=== PATIENT | female | born 1960 | race Caucasian/White ===

== ENCOUNTER → 2017-08-23 22:58 | Outpatient (CLI) | payer BC, SELFPAY ==
[2017-08-27 11:32] LABS: HPV APTIMA, High Risk Negative (Negative)
== END ==
PROVIDERS: Visit Provider Nurse Practitioner Women's Health
DX: Z12.4 Encounter for screening for malignant neoplasm of cervix (principal)
CPT/HCPCS: 88175; G0145

== ENCOUNTER → 2017-08-31 11:01 | Outpatient (CLI) | payer BC, SELFPAY ==
--- NOTE | 2017-08-31 11:03 | US_ITS ---
STUDY: THYROID ULTRASOUND REASON FOR EXAM: Female, 57 years old. Nodule on recent outside MRI films. TECHNIQUE: Ultrasound evaluation of the thyroid was performed with real-time and static ruth-scale imaging. COMPARISON: None. FINDINGS: RIGHT LOBE: The right lobe of the thyroid gland measures 5.2 x 1.2 x 1.9 cm. There is a homogeneous echotexture. There are no demonstrated solid, cystic or complex lesions. LEFT LOBE: The left lobe of the thyroid gland measures 4.2 x 1.8 x 1.5 cm. There is a homogeneous echotexture. There are 3 solid nodules. One is at the upper pole is 8.4 x 8.4 x 8 mm. A second, with slightly less distinct and vascular margins at the mid pole is 1.5 x 1.2 x 1.6 cm. The third is at the lower pole, measuring 5 mm diameter and less clearly defined. ISTHMUS: The isthmus measures 2 mm. The regional lymph nodes are normal. US/Thyroid IMPRESSION: 3 solid left thyroid nodules, as described. Electronically Signed: Beto Ruiz MD at 12:10 EDT , Service support ,
== END ==
PROVIDERS: Family Provider Family Medicine; PCP Family Medicine; Visit Provider Surgery
DX: E04.1 Nontoxic single thyroid nodule (principal)
CPT/HCPCS: 76536

== ENCOUNTER → 2017-09-02 13:03 | Outpatient (CLI) | payer BC, SELFPAY ==
--- NOTE | 2017-09-02 08:00 | ASPS_PTH ---
PATIENT: CHARLES PERDUE LOC: [facility] U#:[id number] AGE/SX: 64/F ROOM: RE09/02/[address]: Dr. Arsenio Marin MD : 1960 BED: DIS: SPEC #: [id number] RECD: 09/02/17 13:01 STATUS: DHIRAJ GENE #: [id number] WENDY: 09/02/17 08:[address]: Arsenio Marin DEPT: CYTOLOGY RECD BY: Oren Harley ENTERED: 09/02/17 13:31 SP TYPE: ASPIRATION OTHR DR: Dr. Samuel Messina MD Tissues: Thyroid gland, NOS Procedures: Pap Stain (control) Special Stain Group II Cytology Other HEADER OPERATION: Left thyroid FNA PRE-OP DIAGNOSIS: Thyroid nodules TISSUE SUBMITTED: Left thyroid slides (10) DIAGNOSIS CYTOLOGY Left thyroid nodule, FNA (smears): Consistent with benign follicular nodule. See cytology study and comment. SJ:connie 09/03/17 COMMENT Correlation with clinical, radiologic findings and appropriate follow up are necessary. CYTOLOGY STUDY Slides are reviewed. The specimen is adequate for evaluation. The specimen consists of benign follicular cells and diluted colloid. CYTOLOGY GROSS Received are ten smears labeled with the patient's name and designated per the requisition as left thyroid. Submitted for staining. / 09/02/17 TC:5 CPT: 71559
== END ==
PROVIDERS: Family Provider Family Medicine; PCP Family Medicine; Visit Provider Surgery
DX: E04.1 Nontoxic single thyroid nodule (principal)
CPT/HCPCS: 88161; 88313

== ENCOUNTER → 2017-09-09 13:58 | Outpatient (CLI) | payer BC, SELFPAY ==
--- NOTE | 2017-09-09 14:00 | BI_ITS ---
MAMMOGRAPHY - BILATERAL SCREENING REASON FOR EXAM: Female, 57 years old. Routine annual screening examination. PERTINENT HISTORY: Mother with breast cancer. Aunt with breast cancer. Prior right breast biopsy. TECHNIQUE: Digital bilateral breast raphael (3D mammographic acquisition) in the CC and MLO projections. 2-D mediolateral oblique (MLO) and craniocaudad (CC) views of both breasts were obtained. CAD: Full Field Digital Mammography with Computer Added Detection was performed. COMPARISON: Comparison is made with prior chest examination dated September 08, 2016. FINDINGS: Breast Composition: There are scattered areas of fibroglandular density. There are no dominant masses or suspicious calcifications. A tissue clip marker is once again seen in the upper deep portion of the right breast. No other significant abnormalities are identified. There has been no significant change since the prior study. BI/SCREENING MAMM (CAD), BILAT IMPRESSION: Stable bilateral screening mammogram. Yearly follow-up mammogram recommended. (A) ASSESSMENT CATEGORY: BIRADS Category 2: Benign. A letter regarding these results will be sent to the patient by the facility within 30 days. Approximately 10% of breast cancers are not detected by mammography. A normal mammogram should not delay biopsy of a clinically suspicious abnormality. [id number] Electronically Signed: Mesfin Christensen MD at 15:15 EDT Tel [phone], Service support ,
== END ==
PROVIDERS: Family Provider Family Medicine; PCP Family Medicine; Visit Provider Nurse Practitioner Women's Health
DX: Z12.31 Encounter for screening mammogram for malignant neoplasm of breast (principal)
CPT/HCPCS: 77063; 77067

== ENCOUNTER → 2018-09-13 09:33 | Outpatient (CLI) | payer BC, SELFPAY ==
[2018-08-30 13:38] VITALS: BMI 26.1
--- NOTE | 2018-09-13 09:35 | US_ITS ---
STUDY: THYROID ULTRASOUND REASON FOR EXAM: Female, 58 years old. Thyroid nodules TECHNIQUE: Ultrasound evaluation of the thyroid was performed with real-time and static ruth-scale imaging. COMPARISON: 08/31/2017 FINDINGS: RIGHT LOBE: The right lobe of the thyroid gland measures 5.1 x 1.7 x 1.3 cm. There is a homogeneous echotexture. There are no demonstrated solid, cystic or complex lesions. LEFT LOBE: The left lobe of the thyroid gland measures 4.4 x 1.6 x 1.6 cm. There is a homogeneous echotexture. Again noted are 3 solid nodules in the left lobe of the thyroid. The largest measures 1.6 x 1.3 cm. These are not significantly changed when compared with the prior exam. ISTHMUS: The isthmus measures 2 mm. The regional lymph nodes are normal. US/Thyroid IMPRESSION: No significant change in the previously seen left thyroid nodules. Electronically Signed: Wilton Stephen, at 17:25 EDT Tel , Service support ,
--- NOTE | 2018-09-13 10:15 | BI_ITS ---
MAMMOGRAPHY - BILATERAL SCREENING REASON FOR EXAM: Female, 58 years old. Routine annual screening examination. PERTINENT HISTORY: Mother with breast cancer. Aunts with breast cancer. TECHNIQUE: Digital bilateral breast roseann (3D mammographic acquisition) in the CC and MLO projections. 2-D mediolateral oblique (MLO) and craniocaudad (CC) views of both breasts were obtained. CAD: Full Field Digital Mammography with Computer Added Detection was performed. COMPARISON: Comparison is made with prior study dated September 09, 2017 and August 18, 2010. FINDINGS: Breast Composition: There are scattered areas of fibroglandular density. There are no dominant masses or suspicious calcifications. Once again, a tissue clip marker is seen in the upper deep portion of the right breast. No other significant abnormalities are identified. There has been no significant change since the prior study. BI/SCREEN MAMM (CAD) W/ROSEANN BILAT IMPRESSION: Stable bilateral screening mammogram. Yearly follow-up mammogram recommended. (A) ASSESSMENT CATEGORY: BIRADS Category 2: Benign. A letter regarding these results will be sent to the patient by the facility within 30 days. Approximately 10% of breast cancers are not detected by mammography. A normal mammogram should not delay biopsy of a clinically suspicious abnormality. [id number] Electronically Signed: Mesfin Christensen, at 12:39 EDT , Service support ,
== END ==
PROVIDERS: Family Provider Family Medicine; PCP Family Medicine; Referring Provider Nurse Practitioner Women's Health; Visit Provider Nurse Practitioner Women's Health
DX: Z12.31 Encounter for screening mammogram for malignant neoplasm of breast (principal); Z80.3 Family history of malignant neoplasm of breast; E04.1 Nontoxic single thyroid nodule
CPT/HCPCS: 76536; 77063; 77067

== ENCOUNTER → 2018-09-16 10:00 | Outpatient (CLI) | payer BC, SELFPAY ==
[2018-09-16 09:39] VITALS: BMI 26.1
== END ==
PROVIDERS: Family Provider Family Medicine; PCP Family Medicine; Referring Provider Surgery; Visit Provider Surgery
DX: L65.9 Nonscarring hair loss, unspecified (principal)
CPT/HCPCS: 36415; 84439; 84443

== ENCOUNTER 2019-09-29 12:43 | Emergency (ER) | payer BC, SELFPAY ==
[2018-09-16 09:39] VITALS: BMI 26.1
[2019-09-29 12:43] VITALS: BP 149/86; PULSE 83; RESP 16; TEMP 36.1; O2SAT 96; BMI 25.7
--- NOTE | 2019-09-29 12:57 | RAD_ITS ---
STUDY: X-RAY - LEFT ANKLE REASON FOR EXAM: Female, 59 years old. PAIN, SWELLING AND BRUISING S/P INJURY WHILE HIKING TECHNIQUE: 3 view(s) of the ankle. COMPARISON: None. FINDINGS: Nondisplaced transverse fracture at the base of the fifth metatarsal. Normal visualized distal tibia and fibula. Normal medial and lateral malleoli. Normal tibiotalar articulation and ankle mortise. Normal visualized talus and calcaneus. The visualized subtalar, talonavicular, calcaneocuboid and tarsal articulations are normal. Soft tissue swelling RAD/Ankle min 3 Views IMPRESSION: Nondisplaced transverse fracture at the base of the fifth metatarsal with overlying soft tissue swelling. Electronically Signed: Mesfin Christensen, at 13:24 EDT , Service support ,
--- NOTE | 2019-09-29 13:29 | ED.DCSUM_ITS ---
History of Present Illness Informant: Patient Occurred: Yesterday Mechanism/Context: Fall Onset: Yesterday Context: Sudden Onset Timing: Continuous Quality of Pain: Sharp, Throbbing Location: left ankle Current Severity: Mild Maximum Severity: Moderate Worsened by: walking Relieved by: rest Associated Symptoms: Negative for: Parasthesia, Weakness, Loss of Funtion Narrative: 59-year-old female presents to the emergency department with a left ankle injury. She fell a couple of days ago injuring her left ankle. She has had pain swelling and bruising. No numbness or tingling. No weakness. She is still able to ambulate. She has a remote history of a spraining this ankle. No surgeries. No other injuries are noted. She is not on anticoagulation. Tetanus Immunization: Unknown Prior similar symptoms: No Recent Illness/Hospitalization: No <Houston Walker - Last Filed: 09/29/19 13:33> <Angel Zaidi - Last Filed: 09/29/19 13:52> Chief Complaint: Lower Extremity Injury Past Medical History Prior records reviewed: Yes Past Medical History: None Surgical History: - - removal of spinal cord tumor Lives: With Family Smoking Status: Never smoker Alcohol: None Drugs: None <Houston Walker - Last Filed: 09/29/19 13:33> <Angel Zaidi - Last Filed: 09/29/19 13:52> - Allergies and Home Meds Allergies/Adverse Reactions: Allergies narcotics Adverse Reaction (Mild, Uncoded 09/29/19 12:45) Vomiting Primary Care Physician: Fran Douglas DPM [STAFF PHYSICIAN] - 5-7 Days Review of Systems All systems negative except as indicated General: Denies: Chills, Fever, Malaise Eyes: Denies: Visual changes - bilaterally, Blurred Vision - bilaterally, Diplopia ENT: Denies: Rhinorrhea, Sore throat Cardiovascular: Denies: Chest pain, Palpitations, Heart racing Respiratory: Denies: Dyspnea, Cough, Sputum Gastrointestinal: Denies: Abdominal pain, Nausea, Vomiting, Diarrhea Genitourinary: Denies: Dysuria, Hematuria, Frequency Musculoskeletal: Reports: Swelling, Extremity Pain. Denies: Myalgias, Arthralgias, Neck pain Skin: Denies: Rash, Abscess, Abrasions Neurological: Denies: Headache, Weakness, Parasthesia Hematologic: Denies: Easy bruising, Easy bleeding <Houston Walker - Last Filed: 09/29/19 13:33> Physical Exam Vital Signs/Narrative: Vital Signs Temp Pulse Resp BP Pulse Ox 09/29/19 12:43 97 F L 83 16 149/86 H 96 Inital Vital Signs reviewed: Yes - Extremity Exam Left Ankle: - - Swelling and bruising noted left lateral ankle and foot. Skin is intact. Patient is able to actively plantarflex and dorsiflex. There is no proximal fibular tenderness. DP and PT pulse are normal. She is minimally tender mostly on her lateral malleolus as well as her fifth metatarsal. <Houston Walker - Last Filed: 09/29/19 13:33> Vital Signs/Narrative: Vital Signs Temp Pulse Resp BP Pulse Ox 09/29/19 12:43 97 F L 83 16 149/86 H 96 <Angel Zaidi - Last Filed: 09/29/19 13:52> Diagnostic/Tx/Re-eval Impressions Ankle X-Ray 09/29/19 12:57 IMPRESSION: Nondisplaced transverse fracture at the base of the fifth metatarsal with overlying soft tissue swelling. Electronically Signed: Mesfin Amparo, at 13:24 EDT , Service support , 09/29/19 12:57 XRAY Ankle [Ankle min 3 Views] [RAD] Stat - Medical Decision Making X-ray shows fifth metatarsal fracture. Patient will be placed in a walking boot and given follow-up with podiatry. Patient advised to rest ice and elevate. She uses Aleve for pain and will intermix Tylenol. She was given return precautions and will follow-up as an outpatient. <Houston Walker - Last Filed: 09/29/19 13:33> - Medical Decision Making Patient was seen with me. I did a [id number] examination with the patient. Patient states she fell 3 days ago. Patient states she has had increased bruising over her ankle and foot. Patient states she has been ambulating without difficulty. Patient states the pain is worse with ambulation. Patient denies any paresthesias or weakness. Patient denies any other injuries. Vital signs are stable. Patient is afebrile. Patient is in no acute distress. Musculoskeletal exam reveals tenderness over the base of the fifth metatarsal on the left. There is no tenderness over the malleoli. There is no bony crepitance or step-off. There is edema and ecchymosis over the left foot. Sens ation was intact to light touch in all digits. Capillary refill is less than 2 seconds in all digits. Pedal pulses are equal bilaterally. X-rays of the left ankle were obtained. There is a transverse fracture of the base of the fifth metatarsal. There is minimal displacement. These were interpreted by the radiologist and reviewed by myself. Patient was placed in a walking boot. Patient was instructed to ice and elevate the left foot. Patient was given a referral to podiatry. Patient was instructed to follow-up in 7 to 10 days. Patient understood and was agreeable with the plan. All questions were answered. <Agnel Zaidi - Last Filed: 09/29/19 13:52> ED Disposition <Houston Walker - Last Filed: 09/29/19 13:33> <Angel Zaidi - Last Filed: 09/29/19 13:52> - Plan for ED Patient: Disposition: Home or Assisted Living Diagnosis: Fracture of fifth metatarsal bone of left foot Instructions: ED FOOT FRACTURE Referrals: Fran Douglas DPM [STAFF PHYSICIAN] - 5-7 Days
== END 2019-09-29 13:49 | disposition home or self-care (01) ==
PROVIDERS: Emergency Provider Physician Assistant Medical; PCP Family Medicine
DX: S92.355A Nondisplaced fracture of fifth metatarsal bone, left foot, initial encounter for closed fracture (principal); W19.XXXA Unspecified fall, initial encounter; Y93.9 Activity, unspecified; Y92.89 Other specified places as the place of occurrence of the external cause; Y99.8 Other external cause status; Z88.5 Allergy status to narcotic agent
CPT/HCPCS: 73610; 99283

== ENCOUNTER → 2019-10-24 14:51 | Outpatient (CLI) | payer BC, SELFPAY ==
[2018-09-16 09:39] VITALS: BMI 26.1
[2019-09-29 12:43] VITALS: BMI 25.7
--- NOTE | 2019-10-24 14:51 | BI_ITS ---
MAMMOGRAPHY - BILATERAL SCREENING 3-D TOMOSYNTHESIS REASON FOR EXAM: Female, 59 years old. Routine screening PERTINENT HISTORY: BILAT SCREENING - FAM HX OF MOTHER @ AGE 72 and amp; amp; 2 PATERNAL AUNTS @ AGE 62 - RT BX 7+ YRS AGO. TECHNIQUE: 2-D mammograms and 3-D Tomosynthesis of the breast (s) were performed. CAD was performed. COMPARISON: 09/13/2018 FINDINGS: The breast composition is composed of scattered fibroglandular density. Scattered benign calcifications are seen. No dense spiculated masses or suspicious microcalcifications are identified. No architectural distortion is identified. There is no skin thickening or retraction. Stable tissue clip marker in the central right breast There has been no significant change since the prior study. BI/SCREEN MAMM (CAD) W/ROSEANN BILAT IMPRESSION: No mammographic signs of malignancy. Routine yearly mammograms recommended. ASSESSMENT CATEGORY: BIRADS Category 2: Benign. A letter regarding these results will be sent to the patient by the facility within 30 days. FOLLOW UP RECOMMENDATION: Yearly follow up mammogram recommended. (A) Approximately 10% of breast cancers are not detected by mammography. A normal mammogram should not delay biopsy of a clinically suspicious abnormality. Electronically Signed: Beto Dillon MD at 7:46 EDT , Service support ,
== END ==
PROVIDERS: PCP Family Medicine; Referring Provider Nurse Practitioner Women's Health; Visit Provider Nurse Practitioner Women's Health
DX: Z12.31 Encounter for screening mammogram for malignant neoplasm of breast (principal)
CPT/HCPCS: 77063; 77067

== ENCOUNTER → 2020-07-16 10:57 | Outpatient (CLI) | payer BC, SELFPAY ==
[2019-11-21 15:12] VITALS: BMI 25.7
--- NOTE | 2020-07-16 11:01 | US_ITS ---
STUDY: THYROID ULTRASOUND REASON FOR EXAM: Female, 59 years old. Multiple thyroid nodules TECHNIQUE: Ultrasound evaluation of the thyroid was performed with real-time and static ruth-scale imaging. COMPARISON: Comparison is made with prior study dated 09/13/2018. FINDINGS: RIGHT LOBE: The right lobe of the thyroid gland measures 4.4 cm x 1 cm x 1.4 cm. There is a homogeneous echotexture. There are no demonstrated solid, cystic or complex lesions. LEFT LOBE: The left lobe of the thyroid gland measures 4.4 cm x 1.6 x 2.0 cm. There is a homogeneous echotexture. Once again, 3 solid hypoechoic nodules are seen. The largest measures 1.8 cm x 1.5 cm x 1.7 cm. This is essentially unchanged. This is in the midportion of the left lobe. ISTHMUS: The isthmus measures 2 mm. The regional lymph nodes are normal. US/Thyroid IMPRESSION: Stable solid nodules in the left lobe of the thyroid. Electronically Signed: Mesfin Christensen MD at 13:29 EDT , Service support ,
== END ==
PROVIDERS: PCP Family Medicine; Referring Provider Surgery; Visit Provider Surgery
DX: E04.2 Nontoxic multinodular goiter (principal)
CPT/HCPCS: 76536

== ENCOUNTER 2021-05-06 09:58 | Outpatient (CLI) | payer BC, SELFPAY ==
--- NOTE | 2021-05-06 10:00 | BI_ITS ---
MAMMOGRAPHY - BILATERAL SCREENING REASON FOR EXAM: Female, 60 years old. Routine annual screening examination. PERTINENT HISTORY: Mother with breast cancer. Aunts with breast cancer. TECHNIQUE: Digital bilateral breast roseann (3D mammographic acquisition) in the CC and MLO projections. 2-D mediolateral oblique (MLO) and craniocaudad (CC) views of both breasts were obtained. CAD: Full Field Digital Mammography with Computer Added Detection was performed. COMPARISON: Comparison is made with prior study dated 10/24/2019 and 09/13/2018. FINDINGS: Breast Composition: There are scattered areas of fibroglandular density. There are no dominant masses or suspicious calcifications. A tissue clip marker is seen in the deep upper central portion of the right breast. No other significant abnormalities are identified. There has been no significant change since the prior study. BI/SCRN MAMM (CAD)W/ROSEANN BILAT IMPRESSION: Stable bilateral screening mammogram. Yearly follow-up mammogram recommended. (A) ASSESSMENT CATEGORY: BIRADS Category 2: Benign. A letter regarding these results will be sent to the patient by the facility within 30 days. Approximately 10% of breast cancers are not detected by mammography. A normal mammogram should not delay biopsy of a clinically suspicious abnormality. [id number] Electronically Signed: Mesfin Christensen MD at 10:44 EST , Service support ,
== END 2021-05-06 23:59 | disposition short-term general hospital (02) ==
LOC: OPBI 09:59
PROVIDERS: PCP Family Medicine; Referring Provider Nurse Practitioner Women's Health; Visit Provider Nurse Practitioner Women's Health
DX: Z12.31 Encounter for screening mammogram for malignant neoplasm of breast (principal); Z80.3 Family history of malignant neoplasm of breast
CPT/HCPCS: 77063; 77067

== ENCOUNTER → 2022-05-12 | Outpatient (CLI) | payer BC, SELFPAY ==
--- NOTE | 2022-05-12 09:59 | BI_ITS ---
MAMMOGRAPHY - BILATERAL SCREENING REASON FOR EXAM: Female, 61 years old. Routine annual screening examination. PERTINENT HISTORY: Mother with breast cancer. Aunts with breast cancer. Prior right breast biopsy. TECHNIQUE: Digital bilateral breast roseann (3D mammographic acquisition) in the CC and MLO projections. 2-D mediolateral oblique (MLO) and craniocaudad (CC) views of both breasts were obtained. CAD: Full Field Digital Mammography with Computer Added Detection was performed. COMPARISON: Comparison is made with prior study dated 10/04/2021 and 10/24/2019. FINDINGS: Breast Composition: There are scattered areas of fibroglandular density. There are no dominant masses or suspicious calcifications. A tissue clip marker is once again seen in the deep slightly upper central portion of the right breast. No other significant abnormalities are identified. There has been no significant change since the prior study. BI/SCRN MAMM (CAD)W/ROSEANN BILAT IMPRESSION: Stable bilateral screening mammogram. Yearly follow-up mammogram recommended. (A) ASSESSMENT CATEGORY: BIRADS Category 2: Benign. A letter regarding these results will be sent to the patient by the facility within 30 days. Approximately 10% of breast cancers are not detected by mammography. A normal mammogram should not delay biopsy of a clinically suspicious abnormality. [id number] Electronically Signed: Mesfin Christensen MD at 12:48 EST ,
[2022-05-18 22:15] LABS: HPV APTIMA, High Risk Negative (Negative)
== END | disposition home or self-care (01) ==
PROVIDERS: PCP Family Medicine; Referring Provider Nurse Practitioner Women's Health; Visit Provider Nurse Practitioner Women's Health
DX: Z12.31 Encounter for screening mammogram for malignant neoplasm of breast (principal); Z80.3 Family history of malignant neoplasm of breast; Z12.4 Encounter for screening for malignant neoplasm of cervix
CPT/HCPCS: 77063; 77067; 87624; 88175; G0145

== ENCOUNTER 2022-08-18 06:16 | Day surgery (SDC) | payer BC, SELFPAY ==
[2022-08-18] VITALS (7 sets, daily range): BP systolic 100–137; BP diastolic 60–75; PULSE 75–80; RESP 16–18; TEMP 36.1–36.4; O2SAT 96–99; BMI 25.3
[2022-08-18] MEDS: Lactated Ringers 1,000 ML 15 ML IV (06:52)
--- NOTE | 2022-08-18 07:02 | PCM.HP.STD ---
[facility] - [facility] General Date of Service: 08/18/22 Chief Complaint: Personal history of colon polyps [facility] Narrative CHARLES PERDUE, is a 61 F who presents with a personal history of colon polyps. Her most recent colonoscopy was July 2016. Polyp was removed at that time but it was benign. It was noted that she had a difficult colonoscopy due to tortuosity. She has had no abdominal pain no bright red blood per rectum or melena. [facility] Medical History (Updated 08/18/22 @ 07:[address] Arsenio Marin MD) Easy bruising Excessive bleeding History of colon polyps History of melanoma Low iron Multiple thyroid nodules Non-smoker Post-menopausal Thyroid nodule Type 2 diabetes mellitus Uterine fibroid Wears contact lenses Home Medications solifenacin 10 mg tablet (Vesicare) 10 mg PO QODAY 04/28/17 [History Last Taken Unknown] lysine 500 mg tablet 500 mg PO PRN PRN Cold Sores 05/25/17 [History Last Taken Unknown] lactobacillus combination no.8 3 billion cell capsule (Adult Probiotic) 3,000 mmu cells PO QDAY 08/23/17 [History Last Taken Unknown] multivitamin 1 ea PO DAILY 09/29/19 [History Last Taken Unknown] cranberry fruit concentrate 250 mg chewable tablet (Azo Cranberry) 250 mg PO TID 11/21/19 [History Last Taken Unknown] thyroid support 2 cap PO DAILY 05/06/21 [History Last Taken Unknown] Allergy/AdvReac Type Severity Reaction Status Date / Time Opioids - Morphine Analogues AdvReac Mild Vomiting Verified 08/18/22 06:51 [narcotics] Family History Mother Breast cancer Father Melanoma Surgical History (Updated 08/12/22 @ 12:55 by Ericka Josue) History of colonoscopy Melanoma S/P thyroid biopsy Spinal cord tumor Social History Smoking Status: Never smoker alcohol intake: never substance use type: does not use caffeine: Yes what type of physical activity do you participate in: yoga frequency: daily seatbelt use: always do you feel safe at home: Yes additional social history: [employer] Constitutional Constitutional: Reports systems reviewed and no addt'l complaints, except as documented Cardiovascular Cardiovascular: Denies chest pain Respiratory/Chest Respiratory/Chest: Denies shortness of breath at rest Gastrointestinal Gastrointestinal: Denies abdominal pain, change in bowel habits, hematochezia or melena Vital Signs Vital Signs Vital Signs: 08/18/22 06:53 08/18/22 06:53 Temperature 97.5 F L Temperature Source Temporal Pulse Rate 78 Respiratory Rate 18 Respiratory Pattern Normal Blood Pressure 137/75 H Blood Pressure Mean 95 Blood Pressure Source Monitor Blood Pressure Position Semi-Fowlers Blood Pressure Location Right Arm Pulse Ox 96 Oxygen Delivery Method Room Air Weight Weight: 143 lb Body Mass Index (BMI) 25.3 Physical Exam Const alert, oriented x3 and no apparent distress General Appearance: cooperative and comfortable Eyes General Eye: normal appearance of both eyes Neck General: normal visual inspection Chest inspection of chest normal Resp Effort and Inspection: able to speak in complete sentences and symmetric chest movement Auscultation: clear to auscultation bilaterally Cardio regular rate and regular rhythm GI soft to palpation, non-tender and non-distended Extremity no calf tenderness Neuro oriented x3 Psych thought process normal Assessment & Plan Assessment/Plan (1) History of colon polyps: PLAN: 61-year-old female with a personal history of colon polyps. Plan to proceed with a colonoscopy with possible biopsy or polypectomy as indicated. She is aware of the technique, benefit, risk, alternatives. We will proceed as noted. Arsenio Marin M.D., F.A.C.S.
--- NOTE | 2022-08-18 08:18 | OP.CCLET_ITS ---
08/18/2022 Samuel Messina Md Re : Colonoscopy procedure for Janae Albarran Dear Siddharth This procedure was performed on Thursday, August 18, 2022. My impressions and recommendations are as follows: Impressions : - Hemorrhoids found on perianal exam. - Tortuous colon. - The examination was otherwise normal. - No specimens collected. Recommendations : - Discharge patient to home. - Resume previous diet. - Continue present medications. - Repeat colonoscopy in 5 years for surveillance. My findings are described in the full procedure note, which is enclosed. If I can be of further assistance, please feel free to contact me at Doctor phone number(s): Work: . Sincerely, Arsenio Marin MD 08/18/2022 8:18:15 AM This report has been signed electronically.
--- NOTE | 2022-08-18 08:18 | OP.COLON_ITS ---
Patient Name: Janae Albarran Procedure Date: 08/18/2022 7:43 AM Date of : 1960 Age: 61 Procedure: Colonoscopy Indications: High risk colon cancer surveillance: Personal history of colonic polyps Providers: Arsenio Marin MD Referring MD: Arsenio Marin MD Medicines: See the Anesthesia note for documentation of the administered medications Patient Profile: Last Colonoscopy: July 2016. Complications: No immediate complications. Procedure: Pre-Anesthesia Assessment: - Prior to the procedure, a History and Physical was performed, and patient medications and allergies were reviewed. The patient's tolerance of previous anesthesia was also reviewed. The risks and benefits of the procedure and the sedation options and risks were discussed with the patient. All questions were answered, and informed consent was obtained. Prior Anticoagulants: The patient has taken no previous anticoagulant or antiplatelet agents. ASA Grade Assessment: II - A patient with mild systemic disease. After reviewing the risks and benefits, the patient was deemed in satisfactory condition to undergo the procedure. After I obtained informed consent, the scope was passed under direct vision. Throughout the procedure, the patient's blood pressure, pulse, and oxygen saturations were monitored continuously. The colonoscope was introduced through the anus and advanced to the cecum, identified by appendiceal orifice and ileocecal valve. The colonoscopy was technically difficult and complex due to a tortuous colon. The patient tolerated the procedure well. The quality of the bowel preparation was good. The ileocecal valve and the appendiceal orifice were photographed. Scope In: 7:52:48 AM Scope Withdrawal Time 0 hours 9 minutes 5 seconds Scope Out: 8:13:46 AM Total Procedure Duration Time 0 hours 20 minutes 58 seconds Findings: Hemorrhoids were found on perianal exam. The colon (entire examined portion) was significantly tortuous. Advancing the scope required using manual pressure. The exam was otherwise without abnormality. Impression: - Hemorrhoids found on perianal exam. - Tortuous colon. - The examination was otherwise normal. - No specimens collected. Recommendation: - Discharge patient to home. - Resume previous diet. - Continue present medications. - Repeat colonoscopy in 5 years for surveillance. Procedure Code(s): --- Professional --- 54369, Colonoscopy, flexible; diagnostic, including collection of specimen(s) by brushing or washing, when performed (separate procedure) Diagnosis Code(s): --- Professional --- Z86.010, Personal history of colonic polyps K64.9, Unspecified hemorrhoids Q43.8, Other specified congenital malformations of intestine CPT copyright 2017 [employer]. All rights reserved. The codes documented in this report are preliminary and upon professional fee coder review may be revised to meet current compliance requirements. Arsenio Marin MD 08/18/2022 8:18:15 AM This report has been signed electronically. Number of Addenda: 0 Note Initiated On: 08/18/2022 7:43 AM
== END 2022-08-18 09:21 | disposition home or self-care (01) ==
LOC: EN 06:17 → AC 06:18
PROVIDERS: PCP Family Medicine; Referring Provider Family Medicine; Visit Provider Surgery
PROC: 0DJD8ZZ Inspection of Lower Intestinal Tract, Via Natural or Artificial Opening Endoscopic (ICD-10-PCS; CPT 45378; principal; 2022-08-18 07:25)
DX: Z12.11 Encounter for screening for malignant neoplasm of colon (principal); E11.9 Type 2 diabetes mellitus without complications; K64.9 Unspecified hemorrhoids; Z86.010 Personal history of colon polyps; Q43.8 Other specified congenital malformations of intestine
CPT/HCPCS: 45378; J7120; J2405

== ENCOUNTER → 2023-05-18 | Outpatient (CLI) | payer BC, SELFPAY ==
--- NOTE | 2023-05-18 08:59 | BI_ITS ---
MAMMOGRAPHY - BILATERAL SCREENING REASON FOR EXAM: Female, 62 years old. Routine annual screening examination. PERTINENT HISTORY: Mother with breast cancer. Remote right breast biopsy. Aunts with breast cancer. TECHNIQUE: Digital bilateral breast roseann (3D mammographic acquisition) in the CC and MLO projections. 2-D mediolateral oblique (MLO) and craniocaudad (CC) views of both breasts were obtained. CAD: Full Field Digital Mammography with Computer Added Detection was performed. COMPARISON: Comparison is made with prior study dated May 12, 2022 and May 06, 2021. FINDINGS: Breast Composition: There are scattered areas of fibroglandular density. There are no dominant masses or suspicious calcifications. A tissue clip marker is once again seen in the deep slightly upper central portion of the right breast. No other significant abnormalities are identified. There has been no significant change since the prior study. BI/SCRN MAMM (CAD)W/ROSEANN BILAT IMPRESSION: Stable bilateral screening mammogram. Yearly follow-up mammogram recommended. (A) ASSESSMENT CATEGORY: BIRADS Category 2: Benign. A letter regarding these results will be sent to the patient by the facility within 30 days. Approximately 10% of breast cancers are not detected by mammography. A normal mammogram should not delay biopsy of a clinically suspicious abnormality. [id number] Electronically Signed: Mesfin Christensen MD at 10:00 EST ,
--- OUTSIDE RECORDS SUMMARY | 2023-05-18 09:26 | XMS RPT_ITS | CCD ---
Author Name Unknown Address [id number] [place] [address] Organization [facility] Care Team Providers Care Clock Assembler Name Role Phone Nita Mcfadden Primary Care Provider NITA MCFADDEN Primary Care UnavailGERI Archuleta Attending Unavailable CASSANDRA KO Attending Unavailable NITA MCFADDEN Primary Care Unavailable NITA MCFADDEN Primary Care Unavailable Allergies Allergy Classification Reported Allergen(s) Allergy Type Date of Onset Reaction(s) Facility (2 sources) Acetaminophen / oxyCODONE Drug Allergy 6 Nausea And Vomiting [place] (1 source) HYDROmorphone Drug Allergy 6 [place] (2 sources) Morphine Drug Allergy 6 Nausea And Vomiting [place] (1 source) HYDROmorphone Drug Allergy 6 [facility] Medications Current Medications Medication Drug Class(es) Dates Sig (Normalized) Sig (Original) B Complex Vitamins (VITAMIN B COMPLEX PO) (1 source) B Complex Vitami ns (VITAMIN B COMPLEX PO) Take by mouth 0 Active B COMPLEX VITAMINS PO (1 source) B COMPLEX VITAMI NS PO Take by mouth. 0 Active bee pollen 1000 mg oral tablet (2 sources) Bee Pollen 1000 MG tablet Take by mouth. 0 Active Completed/Discontinued Medications Medication Drug Class(es) Dates Sig (Normalized) Sig (Original) BEE POLLEN ORAL (4 sources) BEE POLLEN ORAL Take by mouth. 0 Active Problems Active Problems Problem Classification Problem Date Documented Date Episodic/Chronic Diabetes mellitus without complication (2 sources) Hyperglycemia; Translations: [Impaired fasting glucose] Onset: 01-08-2023 01-08-2023 Episodic Genitourinary symptoms and ill-defined conditions (6 sources) Incontinence; Translations: [Mixed incontinence] Onset: 09-10-2009 10-25-2015 Chronic Melanomas of skin (5 sources) Malignant melanoma of lower limb ; Translations: [Malignant melanoma of right lower limb, including hip] Onset: 09-08-2016 Resolved: 01-08-2023 09-08-2016 Chronic Melanomas of skin (1 source) H/O Malignant melanoma; Translations: [Personal history of malignant melanoma of skin] Onset: 01-08-2023 01-08-2023 Episodic Other diseases of bladder and urethra (8 sources) Other neuromuscular dysfunction of bladder; Translations: [Overactive bladder] Onset: 09-10-2009 10-25-2015 Chronic Other screening for suspected conditions (not mental disorders or infectious disease) (12 sources) Viral screening status; Translations: [Mammography abnormal] Onset: 08-12-2010 10-25-2015 Episodic Thyroid disorders (2 sources) Multinodular goiter; Translations: [Nontoxic multinodular goiter] Onset: 01-08-2023 01-08-2023 Chronic Past or Other Problems Problem Classification Problem Date Documented Da te Episodic/Chronic Fracture of lower limb (1 source) Metatarsal bone fracture; Translations: [Fracture of unspecified metatarsal bone(s), unspecified foot, initial encounter for closed fracture] Onset: 01-08-2023 Resolved: 01-08-2023 01-08-2023 Episodic Immunizations and screening for infectious disease (3 sources) Immunization due; Translations: [Encounter for immunization] Onset: 01-08-2023 01-08-2023 Episodic Neoplasms of unspecified nature or uncertain behavior (2 sources) Neoplasm of spinal cord; Translations: [Neoplasm of unspecified behavior of endocrine glands and other parts of nervous system] Onset: 06-13-2015 Resolved: 01-08-2023 06-13-2015 Episodic Other lower respiratory disease (1 source) Cough; Translations: [Cough] Onset: 12-26-2014 Resolved: 01-27-2018 01-27-2018 Episodic Other non-epithelial cancer of skin (2 sources) Malignant neoplasm of skin of upper limb; Translations: [Unspecified malignant neoplasm of skin of unspecified upper limb, including shoulder] Onset: 10-15-2004 Resolved: 01-08-2023 10-25-2015 Episodic Other skin disorders (2 sources) Disorder of skin AND/OR subcutaneous tissue; Translations: [Disorder of the skin and subcutaneous tissue, unspecified] Onset: 09-17-2010 Resolved: 01-08-2023 10-25-2015 Episodic Other upper respiratory infections (1 source) Sore throat symptom; Translations: [Sore throat] Onset: 12-26-2014 Resolved: 01-27-2018 01-27-2018 Episodic Residual codes; unclassified (6 sources) Family history of breast cancer; Translations: [Family history of malignant neoplasm of breast] Onset: 07-21-2011 10-25-2015 Episodic Results Test Name Value Interpretation Reference Range Facil ity Vital Signs Date Time Vital Sign Value Performing Clinician Piedad lity 01-08-2023 10:27-0400 Body height 156.2 cm Cassandra Bundyenthal LEAN ENGINEER - MEDICAL PLANNER Work Phone: [employer] 01-08-2023 10:27-0400 Body mass index (BMI) [Ratio] 26.58 kg/m2 Cassandra Gregorenthal LEAN ENGINEER - MEDICAL PLANNER Work Phone: [employer] 01-08-2023 10:27-0400 Body temperature 97.3 [degF] Cassandra Bridenthal LEAN ENGINEER - MEDICAL PLANNER Work Phone: [employer] 01-08-2023 10:27-0400 Body weight 64.86 kg Cassandra Bridenthal LEAN ENGINEER - MEDICAL PLANNER Work Phone: [employer] 01-08-2023 10:27-0400 Diastolic blood pressure 82 mm[Hg] Cassandra Bridenthal LEAN ENGINEER - MEDICAL PLANNER Work Phone: [employer] 01-08-2023 10:27-0400 Heart rate 75 /min Cassandra Bridenthal LEAN ENGINEER - MEDICAL PLANNER Work Phone: [employer] 01-08-2023 10:27-0400 Systolic blood pressure 137 mm[Hg] Cassandra Gregorenthal LEAN ENGINEER - MEDICAL PLANNER Work Phone: [employer] 02-27-2022 09:22-0400 Body height 160 cm Geri Fritz PA-C Work Phone: [facility] 02-27-2022 09:22-0400 Body temperature 97.7 [degF] Geri Fritz PA-C Work Phone: [facility] 02-27-2022 09:22-0400 Body weight 63.96 kg Geri Fritz PA-C Work Phone: [facility] 02-27-2022 09:22-0400 Diastolic blood pressure 76 mm[Hg] Geri Fritz PA-C Work Phone: [facility] 02-27-2022 09:22-0400 Heart rate 80 /min Geri Fritz PA-C Work Phone: [facility] 02-27-2022 09:22-0400 Respiratory rate 14 /min Geri Fritz PA-C Work Phone: [facility] 02-27-2022 09:22-0400 SaO2% (BldA) [Mass fraction] 99 % Geri Fritz PA-C Work Phone: [facility] 02-27-2022 09:22-0400 Systolic blood pressure 114 mm[Hg] Geri Fritz PA-C Work Phone: [facility] Encounters Encounter Date Encounter Type Care Provider Facility Start: 04-13-2023 ambulatory NITA MCFADDEN Fa cility:[facility] Start: 03-19-2023 End: 03-19-2023 ambulatory NITA MCFADDEN [facility] Start: 01-08-2023 End: 01-08-2023 ambulatory CASSANDRA KO [facility] Start: 01-08-2023 End: 01-08-2023 Encounter for general adult medical examination without abnormal findings CASSANDRA KO [facility] Start: 01-08-2023 End: 01-08-2023 Patient encounter procedure Cassandra Ko LEAN ENGINEER - MEDICAL PLANNER [facility]: Start: 01-08-2023 End: 01-08-2023 Periodic preventive med est patient 40-64yrs Cassandra Ko LEAN ENGINEER - MEDICAL PLANNER Work Phone: [facility] Procedures Date Procedure Procedure Detail Performing Clinician Start: 01-08-2023 Adult depression scr eening assessment Cassandra Ko LEAN ENGINEER - MEDICAL PLANNER Work Phone: Start: 08-18-2022 Colonoscopy Cassandra varela LEAN ENGINEER - MEDICAL PLANNER Work Phone: Start: 06-16-2022 Microscopic observat ion [Identifier] in Cervix by Cyto stain Cassandra Bundyradhaanastasia LEAN ENGINEER - MEDICAL PLANNER Work Phone: Start: 05-12-2022 Mammography Cassandra Solis avery LEAN ENGINEER - MEDICAL PLANNER Work Phone: Start: 02-27-2022 Urnls dip stick/tabl et rgnt auto w/o microscopy Geri Fritz PA-C Work Phone: Start: 04-19-2020 COVID-19, ANTIBODY Morales sindy Mcfadden Work Phone: Start: 08-05-2018 Adult depression scr eening assessment Geri Fritz PA-C Work Phone: Start: 09-08-2016 Mammography Geri wooten PA-C Work Phone: Start: 07-03-2016 Colonoscopy Geri wooten PA-C Work Phone: Start: 08-19-2015 Lipid 1996 panel - S андрей or Plasma Geri Fritz PA-C Work Phone: Plan of Treatment Date Care Activity Detail Author Start: 01-08-2033 DTaP/Tdap/Td Vaccine s (3 - Td or Tdap) DTaP/Tdap/Td Vaccines (3 - Td or Tdap) [facility] Start: 08-18-2032 Screening for malign ant neoplasm of colon [facility] Start: 07-08-2026 Screening for malign ant neoplasm of colon Colon cancer screen colonoscopy [facility], [place] Start: 06-16-2025 Screening for malign ant neoplasm of cervix [facility] Start: 01-09-2024 COVID-19 Vaccine (#1) COVID-19 Vacci ne (#1) [facility] Immunizations Immunization Date Immunization Notes Care Provider Casandra marroquin 01-08-2023 tetanus toxoid, redu aaron diphtheria toxoid, and acellular pertussis vaccine, adsorbed Cassandra Bridenthal LEAN ENGINEER - MEDICAL PLANNER Work Phone: [facility] 05-08-2011 hepatitis B vaccine, adult dosage Cassandra Bridenthal LEAN ENGINEER - MEDICAL PLANNER Work Phone: [facility] 05-08-2011 hepatitis B vaccine, unspecified formulation [facility] , [place] 03-24-2011 hepatitis A vaccine, unspecified formulation [facility] [place] 03-24-2011 hepatitis B vaccine, adult dosage Cassandra Bridenthal LEAN ENGINEER - MEDICAL PLANNER Work Phone: [facility] 03-24-2011 hepatitis B vaccine, unspecified formulation [facility] [place] 06-26-2009 hepatitis A vaccine, pediatric/adolescent dosage, 2 dose schedule Cassandra Bridenthal LEAN ENGINEER - MEDICAL PLANNER Work Phone: [facility] 06-26-2009 tetanus toxoid, redu aaron diphtheria toxoid, and acellular pertussis vaccine, adsorbed Cassandra Bridenthal LEAN ENGINEER - MEDICAL PLANNER Work Phone: [facility] 1961 measles, mumps and rubella virus vaccine Cassandra Bridenthal LEAN ENGINEER - MEDICAL PLANNER Work Phone: [facility] Payers Date Payer Category Payer Unknown [id number] [id number] 2008 Unknown [id number] Social History Date Type Detail Facility Start: 05-01-2011 End: 02-22-2018 Tobacco smoking status NHIS Never smoker [facility] Start: 05-01-2011 End: 02-22-2018 Tobacco use and exposure Never used [facility] [place] [place] Start: 02-22-2018 End: 02-27-2022 Alcohol intake Current non-drinker of alcohol (finding) Judi [facility] FELICIA CHAIREZ Start: 1960 [facility] FELICIA CHAIREZ Start: 02-17-2022 End: 01-08-2023 Exposure to SARS-CoV-2 (event) Not sure [facility] Start: 05-29-2022 End: 01-08-2023 Alcohol intake [facility] Start: 05-29-2022 End: 01-08-2023 Alcohol Use Disorder Identification Test - Consumption [AUDIT-C] [facility] How often to you hav e a drink containing alcohol? Never [facility] How many standard dr inks containing alcohol do you have on a typical day? Patient does not drink [facility] (I/We) worried wheth er (my/our) food would run out before (I/we) got money to buy more. Never true [facility] [employer] In the past 12 month s, was there a time when you were not able to pay the mortgage or rent on time? No [facility] Clinical Notes 09-17-2010 to 04-19-2023 Assessment & Plan Note - LEEANNA Taveras CNP - 01/08/2023 12:10 PM EDTAssessment & Plan Note - LEEANNA Taveras CNP - 01/08/2023 12:10 PM EDT Note Date & Type Note Facility 04-19-2023 Note HNO ID: [id number] Author: Geri Fritz PA-C Service: ? Author Type: Physician Small Business Consultant Type: Progress Notes Filed: 04/19/2023 7:50 PM Note Text: Patient left office visit without being seen, she waited for a hour and decided to leave. Nurse informed me and I will review her chart and reach out with [employer] message Will renew her ditropan for 1 year, and requested a visit be rescheduled Will have schedulers make follow-up appointment. ISMAEL Judd, [place], PASaidaC [facility] 03-19-2023 Note Addended by: CASSANDRA LEE on: 03/19/2023 07:08 AM Modules accepted: Orders [facility] 01-08-2023 Evaluation + Plan note Associated Problem(s): Elevated fasting glucose Patient with elevated fasting glucose at home, check hemoglobin A1c. Continue weekly glucose checks. Patient does state that she will not take medicine for diabetes at this time [facility] 01-08-2023 Evaluation + Plan note Associated Problem(s): Multinodular goiter Patient asymptomatic. Consider checking TSH with next blood draws declines today [facility] 01-08-2023 Miscellaneous Notes Associated Problem(s): Elevated fasting glucose Patient with elevated fasting glucose at home, check hemoglobin A1c. Continue weekly glucose checks. Patient does state that she will not take medicine for diabetes at this time Associated Problem(s): Multinodular goiter Patient asymptomatic. Consider checking TSH with next blood draws declines today Associated Problem(s): History of melanoma Mc. Patient is followed by dermatology. Sees provider at [facility] every 6 months Associated Problem(s): Abnormal mammogram Calcium deposits. Goes every year at [place]. 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 Sees yearly documented in this encounter [facility] 01-08-2023 Evaluation + Plan note Associated Problem(s): History of melanoma Mc. Patient is followed by dermatology. Sees provider at [facility] every 6 months [facility] 01-08-2023 Evaluation + Plan note Associated Problem(s): Abnormal mammogram Calcium deposits. Goes every year at [place]. [facility] 01-08-2023 Evaluation + Plan note 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 Sees yearly [facility] 01-08-2023 History of Presen t illness Narrative Images from the original note were not included. 01/08/2023 Charles Perude (: 1960) is a 62 y.o. female , New patient, here for evaluation of the following chief complaint(s): Establish Care and Health Maintenance (Hep C--declines, HIV--declines, Hep B 3--did not finish series it was for a missions trip, MMR--had vaccine as a child, COVID--did not get, Shingles--declines, Tdap--wants to think about, Flu--declines) ASSESSMENT/PLAN: 1. Annual physical exam 2. Screening for diabetes mellitus - Hemoglobin A1c 3. Immunization due - Tdap vaccine greater than or equal to 7 years old IM 4. Hypertonicity of bladder Assessment & Plan: Stable. Followed by urology. Sees yearly 5. Multinodular goiter Assessment & Plan: Patient asymptomatic. Consider checking TSH with next blood draws declines today 6. Elevated fasting glucose Assessment & Plan: Patient with elevated fasting glucose at home, check hemoglobin A1c. Continue weekly glucose checks. Patient does state that she will not take medicine for diabetes at this time Follow up for schedule for fasting labs (to check cholesterol) . SUBJECTIVE/OBJECTIVE: HPI - Charles Perdue presents as new patient, previous primary care provider Siddharth, last seen couple years ago by previous provider. Specialists/other providers? No Chief complaint(s): Establish Care and Health Maintenance (Hep C--declines, HIV--declines, Hep B 3--did not finish series it was for a missions trip, MMR--had vaccine as a child, COVID--did not get, Shingles--declines, Tdap--wants to think about, Flu--declines) Patient presents to reestablish with provider. Previously seen by Dr. Mcfadden however has been a few years. She does follow-up with urology for hypertonicity of the bladder and takes Vesicare every other day with good symptom control. 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 Multinodular goiter-reports having biopsies done that were benign. Denies any difficulty swallowing or symptoms. History of melanoma-sees dyehouse worker at [facility] every 6 months for skin checks The main reason she came in today is that her daughter was wanting her to have a hemoglobin A1c done due to having elevation of glucose at home. Reports that her dad had diabetes and she checks her fasting glucose every Wednesday and it has been between 120 and 140. 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 And cleared. Past Surgical History: Procedure Laterality Date BASAL CELL CARCINOMA EXCISION 10/2021 forehead BREAST BIOPSY NECK SURGERY 06/2015 remove tumor Family History Problem Relation Name Age of Onset Hyperlipidemia Mother Diabetes Father Social History Socioeconomic History Marital status: Spouse name: Not on file Number of children: Not on file Years of education: Not on file Highest education level: Not on file Occupational History Not on file Tobacco Use Smoking status: Never Smokeless tobacco: Never Vaping Use Vaping Use: Never used Substance and Sexual Activity Alcohol use: No Alcohol/week: 0.0 standard drinks of alcohol Drug use: No Sexual activity: Yes Partners: Male Other Topics Concern Not on file Social History Narrative Lives with Odin, 3 girls, ages 41,37, 35, 7 grandkids- everyone is healthy. 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 No pets. Has she Social Determinants of Health Financial Resource Strain: Low Risk (01/08/2023) Overall Financial Resource Strain (CARDIA) Difficulty of Paying Living Expenses: Not hard at all Food Insecurity: No Food Insecurity (01/08/2023) Hunger Vital Sign Worried About Running Out of Food in the Last Year: Never true Ran Out of Food in the Last Year: Never true Transportation Needs: No Transportation Needs (01/08/2023) PRAPARE - Transportation Lack of Transportation (Medical): No Lack of Transportation (Non-Medical): No Physical Activity: Sufficiently Active (01/08/2023) Exercise Vital Sign Days of Exercise per Week: 7 days Minutes of Exercise per Session: 150+ min Stress: Not on file Social Connections: Not on file Intimate Partner Violence: Not on file Housing Stability: Low Risk (01/08/2023) Housing Stability Vital Sign Unable to Pay for Housing in the Last Year: No Number of Places Lived in the Last Year: 1 Unstable Housing in the Last Year: No Prior to Admission medications Medication Sig Start Date End Date Taking? Authorizing Provider B COMPLEX VITAMINS PO Take by mouth. Yes Historical Provider, Bee Pollen 1000 MG tablet Take by mouth. Yes Historical Provider, ELDERBERRY PO Take 1 tablet by mouth in the morning. Yes Historical Provider, phenazopyridine (Pyridium) 100 MG tablet Take 2 tablets by mouth daily. Yes Historical Provider, solifenacin (VESIcare) 10 MG tablet Take 10 mg by mouth. 12/22/22 Yes Historical Provider, Review of Systems Constitutional: Negative. HENT: Negative. Eyes: Negative for visual disturbance. Gradual decline, cataracts. Putting off for now. Respiratory: Negative for cough, chest tightness and shortness of breath. Cardiovascular: Negative for chest pain, palpitations and leg swelling. Gastrointestinal: Negative. Genitourinary: Negative for difficulty urinating and vaginal bleeding. Musculoskeletal: Occasional, nothing bothersome Skin: Sees dermatology twice yearly- [facility] Neurological: Negative for dizziness, seizures, weakness, light-headedness and headaches. Psychiatric/Behavioral: Negative for agitation. The patient is not nervous/anxious. Vitals: 01/08/23 1027 BP: 137/82 BP Location: Left arm Patient Position: Sitting BP Cuff Size: Adult Pulse: 75 Temp: 36.3 C (97.3 F) Weight: 143 lb (64.9 kg) Height: 5' 1.5 (1.562 m) Physical Exam Constitutional: General: She is not in acute distress. Appearance: Normal appearance. She is normal weight. She is not ill-appearing. HENT: Head: Normocephalic and atraumatic. Right Ear: Tympanic membrane, ear canal and external ear normal. There is no impacted cerumen. Left Ear: Tympanic membrane, ear canal and external ear normal. There is no impacted cerumen. Nose: Nose normal. No congestion or rhinorrhea. Mouth/Throat: Mouth: Mucous membranes are moist. Pharynx: Oropharynx is clear. Uvula midline. No oropharyngeal exudate or posterior oropharyngeal erythema. Eyes: Conjunctiva/sclera: Conjunctivae normal. Pupils: Pupils are equal, round, and reactive to light. Cardiovascular: Rate and Rhythm: Normal rate and regular rhythm. Pulses: Normal pulses. Heart sounds: Normal heart sounds. Pulmonary: Effort: Pulmonary effort is normal. No respiratory distress. Breath sounds: Normal breath sounds. Abdominal: General: Abdomen is flat. Bowel sounds are normal. Palpations: Abdomen is soft. Tenderness: There is no abdominal tenderness. There is no right CVA tenderness or left CVA tenderness. Musculoskeletal: General: Normal range of motion. Arms: Cervical back: Normal range of motion and neck supple. No rigidity or tenderness. Lymphadenopathy: Cervical: No cervical adenopathy. Skin: General: Skin is warm and dry. Findings: No erythema or rash. Neurological: General: No focal deficit present. Mental Status: She is alert and oriented to person, place, and time. Psychiatric: Mood and Affect: Mood normal. Behavior: Behavior normal. An electronic signature was used to authenticate this note. LEEANNA Taveras CNP 01/08/2023 12:13 PM After obtaining consent, and per orders of Cassandra MONTES, injection of 0.5ml tdap given in left deltoid by Precious Barba. Patient instructed to report any adverse reaction immediately. documented in this encounter [facility] 01-06-2023 Miscellaneous Notes Patient phones requesting refills as follows: Requested Prescriptions Pending Prescriptions Disp Refills solifenacin 10 mg tablet 45 tablet 3 Sig: Take 1 tablet by mouth every other day. Please review and advise. Jocelyne Espinoza RN documented in this encounter [facility] 02-27-2022 History of Presen t illness Narrative Images from the original note were not included. [facility] NEW PATIENT CLINIC NOTE SERVICE DATE: 02/27/2022 SERVICE TIME: 9:28 AM NAME: Charles Perdeu CHIEF COMPLAINT: OAB Follow up HISTORY OF PRESENT ILLNESS: Charles Perdue is a 61 year old Male with PMH including OAB and Melanoma (LE) presenting with increase in OAB symptoms The patient reports she has been out of the Vesicare and the urgency and frequency are worsening. LUTS: DYSURIA: no URGENCY: Yes FREQUENCY:8 per day NOCTURIA: 2 per night STRAINING TO VOID: No EMPTIES COMPLETELY: Yes UTI: No GROSS HEMATURIA: no MICROSCOPIC HEMATURIA: no UA DIPSTICK POSITIVE ONLY: no Other symptoms: LABS: No results found for: TESTOST No results found for: TESTFREE No results found for: PSA Hematocrit (%) Date Value 06/07/2015 32.3 06/06/2015 32.9 06/05/2015 35.1 MEDICATIONS: solifenacin 10 mg tablet Take 1 tablet by mouth once daily. (Patient taking differently: Take 10 mg by mouth once daily. One tablet every other day) elderberry fruit (ELDERBERRY ORAL) Take 1 tablet by mouth once daily. phenazopyridine HCl (AZO ORAL) Take by mouth. 2 pills once daily VITAMIN B COMPLEX ORAL Take by mouth once daily. gluc buchanan/chondro buchanan a/vit c/mn(GLUCOSAMINE CHONDROITIN MAXIMUM STRENGTH 500 MG-400 MG CAP) Take one(1) capsules three(3) times daily.. iv contrast (will be provided with radiology test) MRI CSP Inject, intravenously, once for 1 dose. No IV access, insert saline lock prior to the beginning of sedation, infusion, injection of imaging exam. Discontinue saline lock post exam. If Pt. has a central line or IVAD, may access for administration according to line specific nursing protocol. Once exam is complete flush line and de-access according to line specific nursing protocol in the MR contrast administration guidelines link. traMADol (ULTRAM) 50 mg tablet Take 50 mg by mouth every 4 hours as needed. (Patient not taking: Reported on 02/27/2022) BEE POLLEN ORAL Take by mouth. (Patient not taking: Reported on 02/27/2022) DOCOSAHEXANOIC ACID/EPA (FISH OIL ORAL) Take by mouth. (Patient not taking: Reported on 02/27/2022) gabapentin (NEURONTIN) 300 mg capsule Take 300 mg by mouth twice daily. (Patient not taking: Reported on 02/27/2022) Vit B Cmplx 3-FA-Vit C-Biotin ORAL tablet Take 1 tablet by mouth daily with breakfast. (Patient not taking: Reported on 02/27/2022) COMPOUNDED PRESCRIPTION reliv-powder form in liquid once daily (Patient not taking: Reported on 02/27/2022) PAST MEDICAL HISTORY: PAST MEDICAL HISTORY Diagnosis Date Cervical spine tumor Melanoma of lower leg (HCC) 06/2016 Overactive bladder Skin cancer of face PAST SURGICAL HISTORY: PAST SURGICAL HISTORY Procedure Laterality Date BREAST BIOPSY Calcium deposits EXC TUMOR SOFT TISSUE ABDOMINAL WALL SUBQ 3+CM Left 04/01/16 Exc. Lipoma left mid abdomen EXCISION OF LINGUAL TONSIL PAST SURGICAL HISTORY OF BASAL CELL CARCINOMA ON CHEST REMOVED REM LESION TRUNK,ARM, LEG <0.5 CM 09/17/10 Exc. 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 ENMT: Negative CARDIOVASCULAR:NO CHEST PAIN, PALPITATIONS, ANKLE EDEMA RESPIRATORY: No chronic cough, wheezing, dyspnea, hemoptysis. GENITOURINARY: SEE HPI MUSCULOSKELETAL:NO CHRONIC BACK PAIN, ARTHRITIS, CHRONIC NECK PAIN SKIN: NO VARICOSE VEINS, RASH, ABNORMAL ITCHING HEME/LYMPH/IMMUNE:Negative for prolonged bleeding, bruising easily or swollen nodes NEUROLOGICAL: NO HEADACHES, NUMBNESS, SEIZURES, STROKE DIABETES: no All other systems reviewed and are negative PHYSICAL EXAMINATION: Pulse 80, temperature 36.5 C (97.7 F), temperature source Temporal, height 160 cm (5' 3 ), weight 64 kg (141 lb), last menstrual period 04/01/2013, SpO2 99 %. GENERAL: WNL nutrition, no deformities, healthy appearing NEURO: Awake, alert and oriented x 3 and Normal gait PSYCH: No signs of depression, anxiety, or agitation ENMT (Ear, Nose, Mouth, Throat): No masses, adenopathy, icterus. Thyroid nonpalpable RESP: NL effort, no retractions or purse-lip breathing. CV: No extremity swelling, varices, edema, pallor, erythema GASTROINTESTINAL: Soft, nontender, nondistended, no masses. HERNIAS: None SKIN: No rash, lesions No palpable lymphadenopathy MUSCULOSKELETAL: Extremities normal. No deformities, edema, clubbing or skin discoloration. PROBLEM LIST REVIEW: Yes LABS: Results for orders placed or performed in visit on 02/27/22 UA DIP, URINE (POC) Result Value Ref Range GLUCOSE UA (POCT) Negative Negative mg/dL BILIRUBIN UA (POCT) Negative Negative KETONE UA (POCT) Negative Negative mg/dL SPECIFIC GRAVITY UA (POCT) 1.025 1.005 - 1.030 HEMOGLOBIN/BLOOD UA (POCT) Negative Negative PH UA (POCT) 5.5 4.5 - 8.0 PROTEIN UA (POCT) Negative Negative mg/dL UROBILINOGEN UA (POCT) 0.2 Normal E.U./dL NITRITE UA (POCT) Negative Negative LEUKOCYTES UA (POCT) Negative Negative COLOR UA (POCT) Yellow CLARITY UA (POCT) Clear PROCEDURES: PVR: 0 ml IMAGING: IMPRESSION/PLAN: 61 year old female with . 1. 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 ISMAEL Fritz MT, PA-C for refills and annual follow-up. I spent a total of 30 minutes on the date of the service which included preparing to see the patient, face to face patient care, completing clinical documentation, obtaining and/or reviewing separately obtained history, performing a medically appropriate examination, counseling and educating the patient/family/caregiver, ordering medications, tests, or procedures, and care coordination. ISMAEL Judd MT, PA-C Verified name and date of . CC Post Void Residual HPI: Charles Perdue is a 61 year old female. The patient is here now for an appointment with ISMAEL Judd MT, PA-COV. Procedure: Explained procedure to patient and verbalizes understanding. Performed a PVR. Patient urinated and instructed to empty bladder as much as possible just prior to having PVR done using bladder ultrasound scanner. Results of scan: 0 mL The patient tolerated the procedure well. Plan: Appointment with Geri. documented in this encounter [facility] 02-17-2022 Miscellaneous Notes Last 2018 ISMAEL Judd MT, PA-C documented in this encounter [facility] 12-24-2021 Miscellaneous Notes Patient called. Verified name and date of . Patient requests medication refill. Reports she only takes one tablet every other day, not daily. Last office visit 05/27/2018. Aware she needs appointment stating she cannot be seen any earlier than end of January. Aware that provider typically only refills for 30 day supply when over due for visit. Scheduled NEW UROL appointment for 02/27/22 at 0920 and informed will call her if refill only for the 30 days. Please review and advise. Kyleigh Young LPN Requested Prescriptions Pending Prescriptions Disp Refills solifenacin 10 mg tablet 90 tablet 3 Sig: Take 1 tablet by mouth once daily. documented in this encounter [facility] documented as of this encounter (statuses as of 01/06/2022) [facility] History of Past illness Narrative* Problem Noted Date Resolved Date Unspecified disorder of skin and subcutaneous ti ssue 09/17/2010 09/08/2016 Abnormal mammogram, unspecified 08/12/2010 09/08/2016 documented as of this encounter (statuses as of 02/17/2022) [facility] History of Past illness Narrative* Problem Noted Date Resolved Date Unspecified disorder of skin and subcutaneous ti ssue 09/17/2010 09/08/2016 Abnormal mammogram, unspecified 08/12/2010 09/08/2016 documented as of this encounter (statuses as of 02/27/2022) [facility] History of Past illness Narrative* Problem Noted Date Diagnosed Date Resolved Date Unspecified disorder of skin and subcutaneous tissue 09/17/2010 09/08/2016 Abnormal mammogram, unspecified 08/12/2010 09/08/2016 documented as of this encounter (statuses as of 01/14/2023) [facility] Hyperactivity of bladder- Primary Hypertonicity of bladder [facility] [place] [facility] Diagnosis Annual physical exam- Primary Routine general medical examination at a health care facility Screening for diabetes mellitus Immunization due Hypertonicity of bladder Multinodular goiter Nontoxic multinodular goiter Elevated fasting glucose Impaired fasting glucose documented in [facility] encounter [facility] HealthInstructions* Attachments The following attachments cannot be sent through Care Everywhere. 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 ACP-Advance Directive ACP-Power of Behavioral Analyst Assessments Diagnosis Screening for viral disease Special screening examination for unspecified viral disease Additional Source Comments INFORMATION SOURCE (unrecogn ized section and content) DATE CREATED AUTHOR AUTHOR'S ORGANIZ ATION 05/15/2020 [facility] DATE CREATED AUTHOR AUTHOR'S ORGANIZ ATION 05/15/2020 [facility] DATE CREATED AUTHOR AUTHOR'S ORGANIZ ATION 04/20/2023 [facility] DATE CREATED AUTHOR AUTHOR'S ORGANIZ ATION 04/22/2023 [facility] Source Comments (unrecognize d section and content) In the event this informatio n is protected by the Federal Confidentiality of Alcohol and Drug Abuse Patient Records regulations: The Federal rules restrict any use of the information to criminally investigate or prosecute any alcohol or drug abuse patient.[facility] the event this information is protected by the Federal Confidentiality of Alcohol and Drug Abuse Patient Records regulations: The Federal rules restrict any use of the information to criminally investigate or prosecute any alcohol or drug abuse patient.[facility] the event this information is protected by the Federal Confidentiality of Alcohol and Drug Abuse Patient Records regulations: The Federal rules restrict any use of the information to criminally investigate or prosecute any alcohol or drug abuse patient.[facility] the event this information is protected by the Federal Confidentiality of Alcohol and Drug Abuse Patient Records regulations: The Federal rules restrict any use of the information to criminally investigate or prosecute any alcohol or drug abuse patient.[facility] Reason for Visit (unrecogniz ed section and content) Reason Comments Refill Request Reason Comments New Patient Reason Comments Establish Care Health Maintenance Hep C--declines, HIV --declines, Hep B 3--did not finish series it was for a missions trip, MMR--had vaccine as a child, COVID--did not get, Shingles--declines, Tdap--wants to think about, Flu--declines Reason Onset Date Comments Refill Request 01/06/2023 Care Teams (unrecognized sec tion and content) Clock Assembler Relationship Specialty Start Date End Date Nita Mcfadden [address], [place] [id number] PCP - General 11/11/05 Clock Assembler Relationship Specialty Start Date End Date Nita Mcfadden [address] [place] [address] PCP - General 11/11/05 Clock Assembler Relationship Specialty Start Date End Date Nita Mcfadden MD [address] [place] [address] PCP - General 12/26/14 Clock Assembler Relationship Specialty Start Date End Date Nita Mcfadden [address] [place] [phone] PCP - General 11/11/05 FOR RECORDS PERTAINING TO PATIENTS WHO ARE OR HAVE BEEN ENROLLED IN A CHEMICAL DEPENDENCY/SUBSTANCEABUSE PROGRAM, SOME INFORMATION MAY BE OMITTED. This clinical summary was aggregated from multiple sources. Caution should be exercised in using it in the provision of clinical care. This summary normalizes information from multiple sources, and as a consequence, information in this document may materially change the coding, format and clinical context of patient data. In addition, data may be omitted in some cases. CLINICAL DECISIONS SHOULD BE BASED ON THE PRIMARY CLINICAL RECORDS. [facility], [facility]. provides no warranty or guarantee of the accuracy or completeness of information in this document.
== END | disposition home or self-care (01) ==
LOC: OPBI 08:59
PROVIDERS: PCP Family Medicine; Referring Provider Nurse Practitioner Women's Health; Visit Provider Nurse Practitioner Women's Health
DX: Z12.31 Encounter for screening mammogram for malignant neoplasm of breast (principal); Z80.3 Family history of malignant neoplasm of breast
CPT/HCPCS: 77063; 77067

== ENCOUNTER → 2024-05-23 | Outpatient (CLI) | payer BC, SELFPAY ==
--- NOTE | 2024-05-23 13:55 | BI_ITS ---
MAMMOGRAPHY - BILATERAL SCREENING REASON FOR EXAM: Female, 63 years old. Routine annual screening examination. PERTINENT HISTORY: Mother with breast cancer. Aunts with breast cancer. TECHNIQUE: Digital bilateral breast roseann (3D mammographic acquisition) in the CC and MLO projections. 2-D mediolateral oblique (MLO) and craniocaudad (CC) views of both breasts were obtained. CAD: Full Field Digital Mammography with Computer Added Detection was performed. COMPARISON: Comparison is made with prior study dated May 18, 2023 and May 12, 2022. FINDINGS: Breast Composition: There are scattered areas of fibroglandular density. There are no dominant masses or suspicious calcifications. A tissue clip marker is seen in the upper central portion of the right breast. No other significant abnormalities are identified. There has been no significant change since the prior study. BI/SCRN MAMM (CAD)W/ROSEANN BILAT IMPRESSION: Stable bilateral screening mammogram. Yearly follow-up mammogram recommended. (A) ASSESSMENT CATEGORY: BIRADS Category 2: Benign. A letter regarding these results will be sent to the patient by the facility within 30 days. Approximately 10% of breast cancers are not detected by mammography. A normal mammogram should not delay biopsy of a clinically suspicious abnormality. [id number] Electronically Signed: Mesfin Christensen MD at 14:49 EST ,
== END | disposition home or self-care (01) ==
LOC: OPBI 13:54
PROVIDERS: PCP Family Medicine; Referring Provider Nurse Practitioner Women's Health; Visit Provider Nurse Practitioner Women's Health
DX: Z12.31 Encounter for screening mammogram for malignant neoplasm of breast (principal); Z80.3 Family history of malignant neoplasm of breast
CPT/HCPCS: 77063; 77067

== ENCOUNTER → 2024-08-04 | Outpatient (CLI) | payer BC, SELFPAY ==
--- NOTE | 2024-08-04 09:00 | FLU_PTH ---
PATIENT: CHARLES PERDUE LOC: [facility] U#:[id number] AGE/SX: 63/F ROOM: RE08/04/[address]: Dr. Choco Choi MD : 1960 BED: DIS: 08/04/2024 SPEC #: [id number] RECD: 08/04/24 11:07 STATUS: DHIRAJ GENE #: [id number] WENDY: 08/04/24 09:[address]: Choco Choi DEPT: CYTOLOGY RECD BY: Alexandre Clark ENTERED: 08/04/24 11:07 SP TYPE: Fluid OTHR DR: Dr. Samuel Messina MD Tissues: A - Thyroid gland, NOS Procedures: Special Stain Group II Surgery Specimen Level IV Cytospin Fluid HEADER OPERATION: Fine needle aspiration of left thyroid nodule PRE-OP DIAGNOSIS: Left thyroid nodule TISSUE SUBMITTED: A- Left thyroid nodule fluid for cytology DIAGNOSIS CYTOLOGY A. Left thyroid nodule, FNA: * Nondiagnostic. * Bloody specimen, essentially acellular. CYTOLOGY STUDY Slides are reviewed. CYTOLOGY GROSS A. Received is 30 ml of red-cloudy fluid labeled with the patient's name and and designated per the requisition as Left thyroid nodule. Submitted for cytology preparation (cytospin x1, smear x4). Mr 08/04/2024 CPT: 82567
== END | disposition home or self-care (01) ==
PROVIDERS: PCP Family Medicine; Referring Provider Surgery; Visit Provider Surgery
DX: E04.1 Nontoxic single thyroid nodule (principal)
CPT/HCPCS: 88108; 88305; 88313

== ENCOUNTER → 2024-09-19 | Outpatient (CLI) | payer BC, SELFPAY ==
--- NOTE | 2024-09-19 13:00 | ASPIG_PTH ---
PATIENT: CHARLES PERDUE LOC: [facility] U#:[id number] AGE/SX: 64/F ROOM: RE09/19/[address]: Dr. Choco Choi MD : 1960 BED: DIS: 09/19/2024 SPEC #: [id number] RECD: 09/19/24 13:30 STATUS: DHIRAJ REGenesis #: [id number] WENDY: 09/19/24 13:[address]: Choco Choi DEPT: CYTOLOGY RECD BY: Alexandre Clark ENTERED: 09/19/24 14:09 SP TYPE: ASP OUT OTHR DR: Dr. Samuel Messina MD Tissues: A - Thyroid gland, NOS Procedures: FNA Specimen Adequacy Special Stain Group II Surgery Specimen Level IV Cytology Other HEADER OPERATION: Fine needle aspiration of left thyroid nodule PRE-OP DIAGNOSIS: Left thyroid nodule TISSUE SUBMITTED: A- Left thyroid nodule fluid for cytology DIAGNOSIS CYTOLOGY A. Thyroid, fna - left thyroid nodule: * No malignant cells are identified * Benign (consistent with follicular nodular disease) CYTOLOGY STUDY Slides are reviewed. CYTOLOGY GROSS A. Received is 30 ml of red-cloudy fluid, cytolyt with particles and 4 smears labeled with the patient's name and and designated per the requisition as Left thyroid nodule. Submitted for cytology and cell block preparation. Mr 09/19/2024 CPT: 05782 PRELIMINARY DIAGNOSIS A1-few cells A2 blood By dr. Lynch 09/19/24
== END | disposition home or self-care (01) ==
PROVIDERS: PCP Family Medicine; Referring Provider Surgery; Visit Provider Surgery
DX: E04.1 Nontoxic single thyroid nodule (principal)
CPT/HCPCS: 88161; 88172; 88305; 88313